=== PATIENT | male | born 1940 | race Caucasian/White ===

== ENCOUNTER 2016-06-11 11:42 | Emergency (ER) | payer OTHER, BC ==
[~2016-06-11] VITALS: Ht 185.4 cm; Wt 82.0 kg
[~2016-06-11 11:42] MED LIST: ALLOPURINOL300 MG PO; ASPIR 8181 M1 PO; CARBIDOPA/LEVO1 EACH PO; CYMBALTA60 MG PO; FLONASE16 G1 BOTH NARES; MITIGARE0.6 MG PO; NEURONTIN300 MG PO; PRAVASTATIN SOD80 MG PO; PRINIVIL20 MG PO; RAZADYNE4 MG PO; TAMSULOSIN HCL0.4 MG PO; VITAMIN D-32000 UNI2 PO
[2016-06-11 12:49] LABS: POINT-OF-CARE METER ID UU13113702
[2016-06-11] MEDS ORDERED: METOPROLOL SUCC25 MG PO (13:08)
[2016-06-11] MEDS ORDERED: MYRBETRIQ25 MG PO (13:11)
[2016-06-11] MEDS ORDERED: TAMSULOSIN HCL0.4 MG PO (13:12)
[2016-06-11 13:23] LABS: EOSINOPHIL (%) 0.7 % (0-5); EOSINOPHIL COUNT 0.1 K/uL (0-0.3); IMMATURE GRANULOCYTE (%) 0.8 % (0.0-0.7); IMMATURE GRANULOCYTE COUNT 0.1 K/uL; LYMPHOCYTE COUNT 0.9 K/uL (1.0-2.8); MCHC 31.4 G/DL (30.0-36.0); MCV 89.2 FL (86-99); MONOCYTE COUNT 0.5 K/uL (0-0.8); NEUTROPHIL (%) 79.9 % (45-76); PLATELET COUNT 158 K/uL (156-360); RBC DIS.WIDTH-CV 13.6 % (11.8-14.6); RED BLOOD COUNT 4.71 M/uL (4.00-5.50); WHITE BLOOD COUNT 7.5 K/uL (4.1-10.2)
[2016-06-11 13:32] LABS: CHLORIDE 107 mEq/L (99-109); POTASSIUM 4.5 mEq/L (3.7-5.4); SODIUM 145 mEq/L (136-147)
[2016-06-11 13:34] LABS: GLUCOSE 110 mg/dL (70-99)
[2016-06-11 13:35] LABS: ANION GAP 11 MEQ/L (2-14)
[2016-06-11 13:36] LABS: TOTAL BILIRUBIN 0.8 mg/dL (0.0-1.0)
[2016-06-11 13:37] LABS: ALKALINE PHOSPHATASE 50 IU/L (3-129)
[2016-06-11 13:38] LABS: GFR ESTIMATE (CALCULATED) > 59 mL/min/
[2016-06-11 13:39] LABS: UREA NITROGEN (BUN) 20 mg/dL (9-23)
[2016-06-11 13:41] LABS: TROP-I INTERPRETATION NEGATIVE; TROPONIN-I < 0.01 ng/mL (0.0-0.30)
[2016-06-11 14:24] LABS: ADD MIUA? YES; BILIRUBIN NEGATIVE; BLOOD NEGATIVE; COLOR YELLOW ((YELLOW)); GLUCOSE (STRIP) NEGATIVE; KETONES 5; LEUKOCYTES NEGATIVE; NITRITE NEGATIVE; PROTEIN (STRIP) 100; SPECIFIC GRAVITY 1.023 (1.000-1.030)
[2016-06-11 14:26] LABS: BACTERIA NONE SEEN /HPF; EPITHELIAL CELLS NONE SEEN /HPF; MUCUS TRACE /LPF; RED BLOOD CELLS 0-5 /HPF (0-5); WHITE BLOOD CELLS 0-5 /HPF (0-5)
[2016-06-11 15:14] VITALS: BP 138/69
== END 2016-06-11 15:26 | disposition home or self-care (01) ==
LOC: EME → EDBD 11:42 → EME 11:42
PROVIDERS: Emergency Medicine
DX: G90.8 Other disorders of autonomic nervous system (principal); G20 Parkinson's disease; F03.90 Unspecified dementia, unspecified severity, without behavioral disturbance, psychotic disturbance, mood disturbance, and anxiety; Z95.1 Presence of aortocoronary bypass graft; Z87.891 Personal history of nicotine dependence
CPT/HCPCS: 71010; 80053; 81003; 82948; 84484; 85025; 93005; 99281; 99285

== ENCOUNTER 2016-09-24 22:27 | Inpatient (IN) | payer OTHER, BC ==
[~2016-09-24] VITALS: Ht 185.4 cm; Wt 95.2 kg
[~2016-09-24 22:27] MED LIST changes: +METOPROLOL SUCC25 MG PO; +MYRBETRIQ25 MG PO
[2016-09-24 23:45] LABS: EOSINOPHIL (%) 0 % (0-5); HEMATOCRIT 39.6 % (38.0-50.0); IMMATURE GRANULOCYTE (%) 0.5 % (0.0-0.7); IMMATURE GRANULOCYTE COUNT 0.1 K/uL; INSTRUMENT ABS NEUTROPHIL CT 9.1 K/uL; LYMPHOCYTE COUNT 0.3 K/uL (1.0-2.8); MCH 28.4 PG (29.0-34.0); MCHC 32.6 G/DL (30.0-36.0); MCV 87.2 FL (86-99); MEAN PLAT.VOLUME 10.1 uM^3 (9.0-12.4); MONOCYTE (%) 6.3 % (3-12); MONOCYTE COUNT 0.6 K/uL (0-0.8); NEUTROPHIL (%) 89.6 % (45-76); NEUTROPHIL COUNT 9.1 K/uL (1.8-6.4); PLATELET COUNT 124 K/uL (156-360); RBC DIS.WIDTH-CV 13.5 % (11.8-14.6); RBC DIS.WIDTH-SD 43.2 % (39-53); RED BLOOD COUNT 4.54 M/uL (4.00-5.50); WHITE BLOOD COUNT 10.2 K/uL (4.1-10.2)
[2016-09-25 00:13] LABS: CHLORIDE 105 mEq/L (99-109); POTASSIUM 3.9 mEq/L (3.7-5.4); SODIUM 141 mEq/L (136-147)
[2016-09-25 00:15] LABS: GLUCOSE 126 mg/dL (70-99)
[2016-09-25 00:16] LABS: ANION GAP 10 MEQ/L (2-14)
[2016-09-25 00:18] LABS: GFR ESTIMATE (CALCULATED) > 59 mL/min/
[2016-09-25 00:19] LABS: UREA NITROGEN (BUN) 16 mg/dL (9-23)
[2016-09-25] MEDS ORDERED: RAZADYNE8 MG PO (00:37)
[2016-09-25] MEDS ORDERED: FINASTERIDE5 MG PO (00:39)
[2016-09-25] MEDS ORDERED: COLCRYS0.6 MG PO (00:39)
[2016-09-25] MEDS ORDERED: AMOXICILLIN500 MG PO (00:39)
[2016-09-25 03:53] LABS: ADD MIUA? YES; BILIRUBIN NEGATIVE; BLOOD SMALL; COLOR STRAW ((YELLOW)); GLUCOSE (STRIP) NEGATIVE; KETONES NEGATIVE; LEUKOCYTES NEGATIVE; NITRITE NEGATIVE; PROTEIN (STRIP) NEGATIVE; SPECIFIC GRAVITY 1.005 (1.000-1.030); UROBILINOGEN 0.2 MG/DL (0.2-1.0)
[2016-09-25 03:59] LABS: BACTERIA RARE /HPF; EPITHELIAL CELLS RARE /HPF; MUCUS NONE SEEN /LPF; RED BLOOD CELLS 0-5 /HPF (0-5); UCUL ADDED? NO; WHITE BLOOD CELLS 0-5 /HPF (0-5)
[2016-09-25 04:00] VITALS: BP 142/63
[2016-09-25 05:00] VITALS: BP 127/74
[2016-09-25 06:20] LABS: POINT-OF-CARE METER ID UU13113747
[2016-09-25 12:08] VITALS: BP 144/64
[2016-09-25 15:50] VITALS: BP 158/70
[2016-09-25 18:30] VITALS: BP 152/68
[2016-09-25 23:15] LABS: POINT-OF-CARE METER ID UU14162508
[2016-09-25 23:41] VITALS: BP 125/58
[2016-09-26 04:05] VITALS: BP 157/83
[2016-09-26 06:56] LABS: POINT-OF-CARE METER ID UU14162508
[2016-09-26 07:18] VITALS: BP 155/78
[2016-09-26 08:01] LABS: HEMATOCRIT 38.8 % (38.0-50.0); MCH 28.4 PG (29.0-34.0); MCHC 32.5 G/DL (30.0-36.0); MCV 87.4 FL (86-99); MEAN PLAT.VOLUME 10.8 uM^3 (9.0-12.4); PLATELET COUNT 136 K/uL (156-360); RBC DIS.WIDTH-CV 13.8 % (11.8-14.6); RBC DIS.WIDTH-SD 44.1 % (39-53); RED BLOOD COUNT 4.44 M/uL (4.00-5.50); WHITE BLOOD COUNT 11.6 K/uL (4.1-10.2)
[2016-09-26 08:10] LABS: INTERNAL CONTROL VALID? YES
[2016-09-26 08:32] LABS: ANION GAP 11 MEQ/L (2-14); CHLORIDE 107 MEQ/L (99-109); GFR ESTIMATE (CALCULATED) > 59 mL/min/; GLUCOSE 130 mg/dL (70-99); POTASSIUM 4.2 MEQ/L (3.7-5.4); SAMPLE HEMOLYSIS CHECK 0; SAMPLE ICTERIC CHECK 0; SAMPLE LIPEMIA CHECK 0; SODIUM 143 MEQ/L (136-147)
[2016-09-26 08:38] LABS: UREA NITROGEN (BUN) 34 mg/dL (9-23)
[2016-09-26 15:41] VITALS: BP 138/64
[2016-09-26 23:19] VITALS: BP 198/92
[2016-09-27 00:53] VITALS: BP 186/108
[2016-09-27 01:40] VITALS: BP 162/84
[2016-09-27 07:22] LABS: EOSINOPHIL (%) 0 % (0-5); HEMATOCRIT 39.2 % (38.0-50.0); IMMATURE GRANULOCYTE (%) 0.6 % (0.0-0.7); IMMATURE GRANULOCYTE COUNT 0.1 K/uL; INSTRUMENT ABS NEUTROPHIL CT 10.1 K/uL; LYMPHOCYTE COUNT 0.7 K/uL (1.0-2.8); MCH 28.1 PG (29.0-34.0); MCHC 31.9 G/DL (30.0-36.0); MCV 88.1 FL (86-99); MEAN PLAT.VOLUME 11.2 uM^3 (9.0-12.4); MONOCYTE (%) 4.2 % (3-12); MONOCYTE COUNT 0.5 K/uL (0-0.8); NEUTROPHIL (%) 88.9 % (45-76); NEUTROPHIL COUNT 10.1 K/uL (1.8-6.4); PLATELET COUNT 157 K/uL (156-360); RBC DIS.WIDTH-CV 13.7 % (11.8-14.6); RBC DIS.WIDTH-SD 44.7 % (39-53); RED BLOOD COUNT 4.45 M/uL (4.00-5.50); WHITE BLOOD COUNT 11.3 K/uL (4.1-10.2)
[2016-09-27 07:30] VITALS: BP 150/71
[2016-09-27 08:05] LABS: ANION GAP 11 MEQ/L (2-14); CHLORIDE 107 MEQ/L (99-109); GFR ESTIMATE (CALCULATED) > 59 mL/min/; GLUCOSE 135 mg/dL (70-99); MAGNESIUM 1.8 mg/dl (1.3-2.7); POTASSIUM 3.9 MEQ/L (3.7-5.4); SAMPLE HEMOLYSIS CHECK 0; SAMPLE ICTERIC CHECK 0; SAMPLE LIPEMIA CHECK 0; SODIUM 144 MEQ/L (136-147); UREA NITROGEN (BUN) 37 mg/dL (9-23)
[2016-09-27 12:13] LABS: POINT-OF-CARE USER ID PUTDRM
[2016-09-27 13:30] VITALS: BP 138/68
[2016-09-27 16:52] LABS: POINT-OF-CARE USER ID PUTDRM
[2016-09-28] VITALS: BP 176/78
[2016-09-28 01:45] VITALS: BP 152/50
[2016-09-28 08:38] VITALS: BP 178/84
[2016-09-28 12:10] LABS: POINT-OF-CARE METER ID UU14208750
[2016-09-28 15:10] VITALS: BP 174/78
[2016-09-28 16:28] LABS: POINT-OF-CARE METER ID UU14208750
[2016-09-28 21:29] LABS: POINT-OF-CARE METER ID UU14208750
[2016-09-28 23:27] VITALS: BP 198/92
[2016-09-29 01:10] VITALS: BP 168/80
[2016-09-29 07:20] VITALS: BP 177/84
[2016-09-29 12:19] VITALS: BP 173/88
[2016-09-29 17:50] VITALS: BP 180/87
[2016-09-29 23:02] VITALS: BP 132/67
[2016-09-30 06:47] LABS: POINT-OF-CARE METER ID UU14208750
[2016-09-30 07:15] VITALS: BP 127/59
[2016-09-30] MEDS ORDERED: AMOX TR-K CLV1 EAC4 PO (13:07)
[2016-09-30] MEDS ORDERED: LISINOPRIL40 MG PO (13:08)
[2016-09-30] MEDS ORDERED: PROCARDIA20 MG PO (13:08)
[2016-09-30] MEDS ORDERED: PREDNISONE10 MG PO (13:10)
== END 2016-09-30 14:45 | disposition home health service (06) | DRG 190 ==
LOC: EME 22:27 → 2EAST 09-25 01:11 → EDOF 09-25 01:11 → 2EASTP 09-25 15:41 → 2EAST 09-25 15:45
PROVIDERS: Hospitalist; Internal Medicine; Student in an Organized Health Care Education/Training Program
DX: J44.0 Chronic obstructive pulmonary disease with (acute) lower respiratory infection (principal); J18.0 Bronchopneumonia, unspecified organism; J96.01 Acute respiratory failure with hypoxia; J44.1 Chronic obstructive pulmonary disease with (acute) exacerbation; G20 Parkinson's disease; E78.5 Hyperlipidemia, unspecified; I10 Essential (primary) hypertension; I25.10 Atherosclerotic heart disease of native coronary artery without angina pectoris; M10.9 Gout, unspecified; N40.0 Benign prostatic hyperplasia without lower urinary tract symptoms; F03.90 Unspecified dementia, unspecified severity, without behavioral disturbance, psychotic disturbance, mood disturbance, and anxiety; R41.0 Disorientation, unspecified; Z87.891 Personal history of nicotine dependence; Z95.1 Presence of aortocoronary bypass graft; Z82.49 Family history of ischemic heart disease and other diseases of the circulatory system
CPT/HCPCS: 71010; 80048; 81003; 82948; 83605; 83735; 85025; 85027; 87040; 87449; 94640; 94640 76; 94799; 97530 GP; 99202; 99281; 99285; J0456; J0696; J1644; J1815; J2405; J2920; J7030; J7050; J7512

== ENCOUNTER 2017-07-21 02:17 | Inpatient (IN) | payer OTHER, BC ==
[~2017-07-21] VITALS: Ht 182.9 cm; Wt 73.4 kg
[~2017-07-21 02:17] MED LIST changes: +AMOX TR-K CLV1 EAC4 PO; +AMOXICILLIN500 MG PO; +COLCRYS0.6 MG PO; +FINASTERIDE5 MG PO; +LISINOPRIL40 MG PO; +PREDNISONE10 MG PO; +PROCARDIA20 MG PO; +RAZADYNE8 MG PO
[2017-07-21 02:39] LABS: APPEARANCE CLEAR ((CLEAR)); BILIRUBIN SMALL; BLOOD NEGATIVE; COLOR AMBER ((YELLOW)); GLUCOSE (STRIP) NEGATIVE; KETONES 5; LEUKOCYTES NEGATIVE; NITRITE NEGATIVE; PROTEIN (STRIP) 30; SPECIFIC GRAVITY 1.031 (1.000-1.030); UCUL ADDED? NO
[2017-07-21 02:49] LABS: HEMATOCRIT 36.9 % (38.0-50.0); HEMOGLOBIN 12.5 G/DL (12.5-16.6); MCH 28.9 PG (29.0-34.0); MCHC 33.9 G/DL (30.0-36.0); MCV 85.4 FL (86-99); PLATELET COUNT 179 K/uL (156-360); RBC DIS.WIDTH-CV 14.2 % (11.8-14.6); RBC DIS.WIDTH-SD 44.2 % (39-53); RED BLOOD COUNT 4.32 M/uL (4.00-5.50); WHITE BLOOD COUNT 6.9 K/uL (4.1-10.2)
[2017-07-21 02:52] LABS: ALBUMIN 3.6 g/dL (3.2-4.8); CHLORIDE 106 mEq/L (99-109); POTASSIUM 3.8 mEq/L (3.7-5.4); SODIUM 143 mEq/L (136-147)
[2017-07-21 02:55] LABS: GLUCOSE 97 mg/dL (70-99); TOTAL PROTEIN 6.5 g/dL (6.4-8.3)
[2017-07-21 02:57] LABS: TOTAL BILIRUBIN 1.5 mg/dL (0.0-1.0)
[2017-07-21 02:58] LABS: ALKALINE PHOSPHATASE 55 IU/L (3-129); CREATININE 1.1 mg/dL (0.6-1.3); GFR ESTIMATE (CALCULATED) > 59 mL/min/ (58.99-99999)
[2017-07-21 02:59] LABS: UREA NITROGEN (BUN) 28 mg/dL (9-23)
[2017-07-21 03:00] LABS: AST (GOT) 15 IU/L (2-34)
[2017-07-21 03:01] LABS: ALT (GPT) 3 IU/L (3-49)
[2017-07-21 03:05] LABS: CARBON DIOXIDE (BICARBONATE) 26.4 MEQ/L (20-31)
[2017-07-21 07:46] VITALS: BP 96/52
[2017-07-21 09:55] VITALS: BP 1174/59
[2017-07-21] MEDS ORDERED: KLONOPIN0.5 M1 PO (13:06)
[2017-07-21] MEDS ORDERED: CEFDINIR300 MG PO (13:07)
[2017-07-21] MEDS ORDERED: FLORASTOR250 MG PO (13:08)
[2017-07-21] MEDS ORDERED: MUCINEX600 MG PO (13:08)
[2017-07-21] MEDS ORDERED: FEOSOL325 MG PO (13:09)
[2017-07-21] MEDS ORDERED: NORVASC5 MG PO (13:09)
[2017-07-21] MEDS ORDERED: SENNA S TABLET1 EACH PO (13:11)
[2017-07-21] MEDS ORDERED: CHILD ASPIRIN81 M1 PO (13:13)
[2017-07-21] MEDS ORDERED: COLACE100 MG PO (13:13)
[2017-07-21] MEDS ORDERED: CYMBALTA20 MG PO (13:14)
[2017-07-21] MEDS ORDERED: ZESTRIL10 MG PO (13:16)
[2017-07-21] MEDS ORDERED: TYLENOL EXTRA500 MG PO (13:17)
[2017-07-21] MEDS ORDERED: ATIVAN0.5 MG PO (13:17)
[2017-07-21] MEDS ORDERED: TYLENOL REGULA325 MG PO (13:18)
== END 2017-07-21 18:23 | disposition hospice, home (50) | DRG 871 ==
LOC: EME → EDBD 02:17 → 5EAST 04:08 → EDOF 04:08 → ENRESERV 04:10 → 5EAST 05:47
PROVIDERS: Emergency Medicine
DX: A41.9 Sepsis, unspecified organism (principal); R65.21 Severe sepsis with septic shock; J96.01 Acute respiratory failure with hypoxia; J69.0 Pneumonitis due to inhalation of food and vomit; J44.1 Chronic obstructive pulmonary disease with (acute) exacerbation; R13.10 Dysphagia, unspecified; I10 Essential (primary) hypertension; I25.10 Atherosclerotic heart disease of native coronary artery without angina pectoris; E78.5 Hyperlipidemia, unspecified; G31.83 Neurocognitive disorder with Lewy bodies; F02.81 Dementia in other diseases classified elsewhere, unspecified severity, with behavioral disturbance; N40.0 Benign prostatic hyperplasia without lower urinary tract symptoms; F41.9 Anxiety disorder, unspecified; F32.9 Major depressive disorder, single episode, unspecified; M10.9 Gout, unspecified; F17.210 Nicotine dependence, cigarettes, uncomplicated; Z51.5 Encounter for palliative care; Z66 Do not resuscitate; Z79.82 Long term (current) use of aspirin; Z95.1 Presence of aortocoronary bypass graft; Z82.49 Family history of ischemic heart disease and other diseases of the circulatory system
CPT/HCPCS: 71045; 80053; 81003; 82803; 83605; 83690; 85027; 87040; 93005; 94640; 94640 76; 94760; 94799; 99202; 99281; 99285; J0295; J0696; J1644; J1956; J2060; J2270; J7050